=== PATIENT | female | born 1950 | race Caucasian/White ===

== ENCOUNTER 2020-01-17 13:35 | Inpatient (IN) | payer OTHER ==
[2020-01-17] MEDS ORDERED: SODIUM CHLORIDE 0.9% 500 ML INFUS.BAG IV ONE (14:16)
[2020-01-17] MEDS ORDERED: ONDANSETRON 4 MG/2 ML VIAL IVPUSH ONE (14:17)
[2020-01-17] MEDS ORDERED: GLUCAGON 1 MG KIT IVPUSH ONE (14:34)
[2020-01-17 14:57] LABS: BASO % 0.9 % (0-2.0); EOS % 0.8 % (0-4.5); HEMATOCRIT 31.8 % (32.4-45.2); HEMOGLOBIN 10.7 GM/dL (10.7-15.3); LYMPH % 23.1 % (8-40); MCH 30.1 pg (25.7-33.7); MCHC 33.6 g/dl (32.0-36.0); MEAN CELL VOLUME 89.6 fl (80-96); MEAN PLT VOLUME 7.6 fl (7.5-11.1); MONO % 10.9 % (3.8-10.2); NEUT % 64.3 % (42.8-82.8); PLATELET COUNT 188 K/MM3 (134-434); RBC 3.55 M/mm3 (3.60-5.2); WHITE BLOOD COUNT 4.2 K/mm3 (4.0-10.0)
[2020-01-17 15:05] LABS: INR 1.81 (0.83-1.09); PROTHROMBIN TIME (PATIENT) 21.5 SEC (9.7-13.0)
[2020-01-17 15:17] LABS: CHLORIDE 103 mmol/L (98-107); POTASSIUM 4.2 mmol/L (3.5-5.1); SODIUM 138 mmol/L (136-145)
[2020-01-17 15:19] LABS: CALCIUM 9.2 mg/dL (8.5-10.1); GLUCOSE,RANDOM 101 mg/dL (74-106); LIPASE 202 U/L (73-393)
[2020-01-17 15:20] LABS: ALBUMIN 3.4 g/dl (3.4-5.0); ANION GAP 6 MMOL/L (8-16); BLOOD UREA NITROGEN 21.7 mg/dL (7-18); CO2 29 mmol/L (21-32)
[2020-01-17 15:22] LABS: CREATININE 1.2 mg/dL (0.55-1.3); SGOT/AST 32 U/L (15-37); SGPT/ALT 17 U/L (13-61)
[2020-01-17 15:24] LABS: BILIRUBIN,TOTAL 0.8 mg/dL (0.2-1); TOT PROT 7.1 g/dl (6.4-8.2)
[2020-01-17 15:25] LABS: ALK PHOS 115 U/L (45-117); ANISOCYTOSIS 1+; MACROCYTOSIS 0; PLATELET ESTIMATE NORMAL
[2020-01-17 18:00] LABS: PH,URINE 6.5 (5.0-8.0); URINE APPEARANCE CLEAR; URINE BILIRUBIN NEGATIVE (NEGATIVE); URINE COLOR YELLOW; URINE GLUCOSE (UA) NEGATIVE (NEGATIVE); URINE KETONE 1+ (NEGATIVE); URINE LEUK ESTERASE NEGATIVE (NEGATIVE); URINE NITRITE NEGATIVE (NEGATIVE); URINE PROTEIN NEGATIVE (NEGATIVE)
[2020-01-17] MEDS ORDERED: PIPERACILLIN/TAZOB 3.375 GM 3.375 GM in DEXTROSE 5%-WATER - 50 ML IVPB ONE (18:17)
[2020-01-17] MEDS ORDERED: PIPERACILLIN/TAZOB 3.375 GM 3.375 GM/50 ML BAG IVPB ONE (18:33)
[2020-01-17] MEDS ORDERED: DEXTROSE 5%-0.45% SALINE 1,000 ML IV SCH (19:30)
[2020-01-17] MEDS ORDERED: CEFTRIAXONE 1,000 MG in DEXTROSE 5%-WATER - 50 ML IVPB SCH (20:00)
[2020-01-17] MEDS ORDERED: ACETAMINOPHEN 1000 MG/100 ML VIAL (NON FORMULARY) IVPB PRN (20:04)
[2020-01-17] MEDS ORDERED: CEFTRIAXONE 2 GM/100 ML BAG IVPB ONE (20:15)
[2020-01-17] MEDS: CEFTRIAXONE 2 GM in DEXTROSE 5%-WATER 100 ML IVPB SCH (20:26)
[2020-01-17] MEDS: DEXTROSE 5%-0.45% SALINE 1,000 ML IV SCH ×2 (20:26→23:10)
[2020-01-18 08:52] LABS: BASO % 0.8 % (0-2.0); EOS % 0.9 % (0-4.5); HEMATOCRIT 28.7 % (32.4-45.2); HEMOGLOBIN 9.7 GM/dL (10.7-15.3); LYMPH % 17.9 % (8-40); MCH 30.3 pg (25.7-33.7); MCHC 33.8 g/dl (32.0-36.0); MEAN CELL VOLUME 89.6 fl (80-96); MEAN PLT VOLUME 7.5 fl (7.5-11.1); MONO % 11.7 % (3.8-10.2); NEUT % 68.7 % (42.8-82.8); PLATELET COUNT 126 K/MM3 (134-434); RDW 16.1 % (11.6-15.6); RETICULOCYTES 1.85 % (0.5-1.5); WHITE BLOOD COUNT 4.1 K/mm3 (4.0-10.0)
[2020-01-18 09:38] LABS: ALBUMIN 2.9 g/dl (3.4-5.0); CALCIUM 8.6 mg/dL (8.5-10.1); CREATININE 1.1 mg/dL (0.55-1.3); MAGNESIUM 2.2 mg/dL (1.8-2.4); PHOSPHOROUS 4.4 mg/dL (2.5-4.9); POTASSIUM 4.7 mmol/L (3.5-5.1); TOT PROT 6.3 g/dl (6.4-8.2)
[2020-01-18] MEDS ORDERED: DEXTROSE 5%-WATER 100 ML IVPB ONE (10:21)
[2020-01-18] MEDS: CEFTRIAXONE 2 GM in DEXTROSE 5%-WATER 100 ML IVPB SCH (10:59)
[2020-01-18] MEDS ORDERED: MIDAZOLAM HCL 2 MG/2 ML SINGLE DOSE VIAL ONE (16:25)
[2020-01-18] MEDS ORDERED: ONDANSETRON 4 MG/2 ML VIAL IVPUSH PRN ×2 (17:09→17:31)
[2020-01-18] MEDS ORDERED: ACETAMINOPHEN 1000 MG/100 ML VIAL (NON FORMULARY) IVPB PRN (17:31)
[2020-01-18] MEDS: DEXTROSE 5%-0.45% SALINE 1,000 ML IV SCH (18:00)
[2020-01-18] MEDS: PROPOFOL 1,000,000 MCG/100 ML VIAL IVPB SCH (18:00)
[2020-01-18] MEDS ORDERED: SODIUM CHLORIDE 500 ML IV STA (19:37)
[2020-01-18] MEDS: MUPIROCIN 2% TOPICAL OINTMENT FOR DECOLONIZATION NS SCH (21:44)
[2020-01-18] MEDS: CHLORHEXIDINE GLUCONATE 4% CLEANSER FOR DECOLONIZATION TP SCH (21:44)
[2020-01-19] MEDS: PROPOFOL 1,000,000 MCG/100 ML VIAL IVPB SCH ×3 (01:47→18:00)
[2020-01-19] MEDS: DEXTROSE 5%-0.45% SALINE 1,000 ML IV SCH (05:29)
[2020-01-19 07:05] LABS: BASO % 0.6 % (0-2.0); EOS % 1.1 % (0-4.5); HEMATOCRIT 25.2 % (32.4-45.2); HEMOGLOBIN 8.4 GM/dL (10.7-15.3); MCH 29.9 pg (25.7-33.7); MCHC 33.3 g/dl (32.0-36.0); MEAN CELL VOLUME 89.8 fl (80-96); MEAN PLT VOLUME 7.9 fl (7.5-11.1); MONO % 12.1 % (3.8-10.2); NEUT % 64.2 % (42.8-82.8); PLATELET COUNT 108 K/MM3 (134-434); RDW 16.4 % (11.6-15.6); RETICULOCYTES 1.56 % (0.5-1.5); WHITE BLOOD COUNT 3.6 K/mm3 (4.0-10.0)
[2020-01-19 07:37] LABS: POTASSIUM 3.6 mmol/L (3.5-5.1)
[2020-01-19 07:48] LABS: CALCIUM 8.1 mg/dL (8.5-10.1)
[2020-01-19 07:49] LABS: ALBUMIN 2.4 g/dl (3.4-5.0)
[2020-01-19 07:51] LABS: BILIRUBIN,TOTAL 0.5 mg/dL (0.2-1); TOT PROT 5.5 g/dl (6.4-8.2)
[2020-01-19 07:52] LABS: CREATININE 0.9 mg/dL (0.55-1.3)
[2020-01-19] MEDS ORDERED: DEXTROSE 5%-WATER 100 ML IVPB ONE (09:14)
[2020-01-19] MEDS: MUPIROCIN 2% TOPICAL OINTMENT FOR DECOLONIZATION NS SCH ×2 (09:19→21:53)
[2020-01-19] MEDS: CEFTRIAXONE 2 GM in DEXTROSE 5%-WATER 100 ML IVPB SCH (09:19)
[2020-01-19] MEDS ORDERED: ENOXAPARIN NA (PORCINE) 40 MG/0.4 ML DISP.SYRIN SQ SCH (10:30)
[2020-01-19] MEDS ORDERED: DEXTROSE 5%-LACTATED RINGERS 1,000 ML IV SCH (10:45)
[2020-01-19] MEDS: CHLORHEXIDINE GLUCONATE 4% CLEANSER FOR DECOLONIZATION TP SCH (21:53)
[2020-01-20 06:38] LABS: HEMATOCRIT 30.2 % (32.4-45.2); HEMOGLOBIN 9.9 GM/dL (10.7-15.3); MCH 29.4 pg (25.7-33.7); MCHC 32.9 g/dl (32.0-36.0); MEAN CELL VOLUME 89.6 fl (80-96); MEAN PLT VOLUME 7.9 fl (7.5-11.1); PLATELET COUNT 143 K/MM3 (134-434); RBC 3.37 M/mm3 (3.60-5.2); RDW 16.3 % (11.6-15.6); WHITE BLOOD COUNT 4.2 K/mm3 (4.0-10.0)
[2020-01-20 07:05] LABS: POTASSIUM 3.9 mmol/L (3.5-5.1)
[2020-01-20 07:11] LABS: CALCIUM 8.7 mg/dL (8.5-10.1)
[2020-01-20 07:12] LABS: ALBUMIN 2.6 g/dl (3.4-5.0); BLOOD UREA NITROGEN 7.5 mg/dL (7-18); MAGNESIUM 2.1 mg/dL (1.8-2.4)
[2020-01-20 07:15] LABS: CREATININE 0.9 mg/dL (0.55-1.3); PHOSPHOROUS 3.5 mg/dL (2.5-4.9)
[2020-01-20 07:16] LABS: BILIRUBIN,TOTAL 0.6 mg/dL (0.2-1); TOT PROT 6.1 g/dl (6.4-8.2)
[2020-01-20] MEDS ORDERED: DEXTROSE 5%-WATER 100 ML IVPB ONE (08:32)
[2020-01-20] MEDS: CEFTRIAXONE 2 GM in DEXTROSE 5%-WATER 100 ML IVPB SCH (09:35)
[2020-01-20] MEDS: MUPIROCIN 2% TOPICAL OINTMENT FOR DECOLONIZATION NS SCH (09:35)
[2020-01-20 18:07] LABS: HEP B CORE AB, TOT Negative (Negative)
[2020-01-20] MEDS ORDERED: MUPIROCIN 2% TOPICAL OINTMENT FOR DECOLONIZATION NS SCH (22:00)
[2020-01-21 08:29] LABS: BASO % 0.8 % (0-2.0); EOS % 1.6 % (0-4.5); HEMATOCRIT 27.9 % (32.4-45.2); HEMOGLOBIN 9.3 GM/dL (10.7-15.3); LYMPH % 24.6 % (8-40); MCH 29.8 pg (25.7-33.7); MCHC 33.2 g/dl (32.0-36.0); MEAN CELL VOLUME 89.6 fl (80-96); MEAN PLT VOLUME 7.9 fl (7.5-11.1); MONO % 14.3 % (3.8-10.2); NEUT % 58.7 % (42.8-82.8); PLATELET COUNT 137 K/MM3 (134-434); RBC 3.12 M/mm3 (3.60-5.2); RDW 16.3 % (11.6-15.6); WHITE BLOOD COUNT 3.4 K/mm3 (4.0-10.0)
[2020-01-21 08:37] LABS: POTASSIUM 3.9 mmol/L (3.5-5.1)
[2020-01-21 08:38] LABS: BLOOD UREA NITROGEN 8.2 mg/dL (7-18); CALCIUM 8.6 mg/dL (8.5-10.1)
[2020-01-21 08:42] LABS: CREATININE 0.8 mg/dL (0.55-1.3); PHOSPHOROUS 3.8 mg/dL (2.5-4.9)
[2020-01-21] MEDS ORDERED: DEXTROSE 5%-WATER 100 ML IVPB ONE (09:54)
[2020-01-21] MEDS ORDERED: PT OWN MED DRAWER 7, Y5N ONE (09:54)
[2020-01-21] MEDS: ENOXAPARIN NA (PORCINE) 40 MG/0.4 ML DISP.SYRIN SQ SCH (09:58)
[2020-01-21] MEDS: CEFTRIAXONE 2 GM in DEXTROSE 5%-WATER 100 ML IVPB SCH (09:58)
[2020-01-21 11:23] LABS: PLATELET ESTIMATE SLT DECREASE
[2020-01-21 15:02] VITALS: BMI 30.7
[2020-01-22 08:33] LABS: BASO % 0.7 % (0-2.0); EOS % 1.5 % (0-4.5); HEMATOCRIT 26.2 % (32.4-45.2); HEMOGLOBIN 8.6 GM/dL (10.7-15.3); MCH 29.2 pg (25.7-33.7); MCHC 32.8 g/dl (32.0-36.0); MEAN CELL VOLUME 89.1 fl (80-96); MEAN PLT VOLUME 7.5 fl (7.5-11.1); MONO % 15.1 % (3.8-10.2); NEUT % 56.7 % (42.8-82.8); PLATELET COUNT 149 K/MM3 (134-434); RBC 2.94 M/mm3 (3.60-5.2); RDW 16.3 % (11.6-15.6); WHITE BLOOD COUNT 3.5 K/mm3 (4.0-10.0)
[2020-01-22 09:08] LABS: POTASSIUM 4.2 mmol/L (3.5-5.1)
[2020-01-22 09:16] LABS: BLOOD UREA NITROGEN 11.2 mg/dL (7-18); CALCIUM 8.9 mg/dL (8.5-10.1)
[2020-01-22 09:19] LABS: CREATININE 0.8 mg/dL (0.55-1.3)
[2020-01-22] MEDS ORDERED: DEXTROSE 5%-WATER 100 ML IVPB ONE (09:19)
[2020-01-22] MEDS: ENOXAPARIN NA (PORCINE) 40 MG/0.4 ML DISP.SYRIN SQ SCH (09:32)
[2020-01-22] MEDS: CEFTRIAXONE 2 GM in DEXTROSE 5%-WATER 100 ML IVPB SCH (09:32)
[2020-01-22 10:32] LABS: ANISOCYTOSIS 1+; MACROCYTOSIS 0; PLATELET ESTIMATE DECREASED
[2020-01-22] MEDS ORDERED: ACETAMINOPHEN 650 MG/20.3 ML ORAL SOLUTION (CUPS) PO PRN (16:50)
[2020-01-23 07:54] LABS: BASO % 0.8 % (0-2.0); EOS % 1.7 % (0-4.5); HEMATOCRIT 30.7 % (32.4-45.2); LYMPH % 27.4 % (8-40); MCH 29.1 pg (25.7-33.7); MCHC 32.5 g/dl (32.0-36.0); MEAN CELL VOLUME 89.5 fl (80-96); MEAN PLT VOLUME 7.1 fl (7.5-11.1); NEUT % 59.1 % (42.8-82.8); PLATELET COUNT 194 K/MM3 (134-434); RBC 3.44 M/mm3 (3.60-5.2); RDW 16.1 % (11.6-15.6); WHITE BLOOD COUNT 4.6 K/mm3 (4.0-10.0)
[2020-01-23 08:18] LABS: CALCIUM 8.7 mg/dL (8.5-10.1)
[2020-01-23 08:19] LABS: BLOOD UREA NITROGEN 9.8 mg/dL (7-18)
[2020-01-23 08:22] LABS: CREATININE 0.9 mg/dL (0.55-1.3)
[2020-01-23 09:28] LABS: ANISOCYTOSIS 1+; MACROCYTOSIS 0; PLATELET ESTIMATE NORMAL
[2020-01-23] MEDS ORDERED: DEXTROSE 5%-WATER 100 ML IVPB ONE (12:05)
[2020-01-23] MEDS: ENOXAPARIN NA (PORCINE) 40 MG/0.4 ML DISP.SYRIN SQ SCH (12:10)
[2020-01-23] MEDS: CEFTRIAXONE 2 GM in DEXTROSE 5%-WATER 100 ML IVPB SCH (12:11)
[2020-01-23 14:46] VITALS: BP 131/76; PULSE 77; TEMP 98.8
== END 2020-01-23 17:53 | disposition home or self-care (01) | DRG 393 ==
LOC: JER 13:35 → SUPCPDRO 13:35 → JERBED 16:59 → J5S 23:00 → JICU 01-18 17:50 → J6S 01-20 17:39
PROVIDERS: ADMIT Internal Medicine; ATTEND Student in an Organized Health Care Education/Training Program
PROC: 5A1945Z Respiratory Ventilation, 24-96 Consecutive Hours (ICD-10-PCS; 2020-01-18)
PROC: 0DJ08ZZ Inspection of Upper Intestinal Tract, Via Natural or Artificial Opening Endoscopic (ICD-10-PCS; 2020-01-18)
PROC: 0CHY8BZ Insertion of Airway into Mouth and Throat, Via Natural or Artificial Opening Endoscopic (ICD-10-PCS; principal; 2020-01-18 15:20)
DX: T18.128A Food in esophagus causing other injury, initial encounter (principal); J69.0 Pneumonitis due to inhalation of food and vomit; K81.0 Acute cholecystitis; J98.11 Atelectasis; I10 Essential (primary) hypertension; E78.5 Hyperlipidemia, unspecified; R13.10 Dysphagia, unspecified; K76.89 Other specified diseases of liver; I48.91 Unspecified atrial fibrillation; K76.0 Fatty (change of) liver, not elsewhere classified; K22.2 Esophageal obstruction; D69.6 Thrombocytopenia, unspecified; D72.819 Decreased white blood cell count, unspecified; D64.9 Anemia, unspecified; N63.20 Unspecified lump in the left breast, unspecified quadrant; X58.XXXA Exposure to other specified factors, initial encounter; Y93.9 Activity, unspecified; Y92.89 Other specified places as the place of occurrence of the external cause; Y99.9 Unspecified external cause status
CPT/HCPCS: 31500; 36415; 71045-TC-FY; 71046-TC-FY; 71250-TC; 72130-TC; 72133-TC; 74176-TC; 74220-TC-FY; 74240-TC-FY; 76705-TC; 80048; 80053; 81003; 82105; 82378; 82607; 82728; 82746; 82747; 82784; 83010; 83516; 83540; 83550; 83615; 83690; 83735; 84100; 84155; 84165; 84436; 84443; 84484; 85014; 85025; 85027; 85045; 85610; 85730; 86038; 86140; 86300; 86301; 86334; 86704; 86706; 86707; 86708; 86709; 86803; 87040; 87340; 93005; 93010; 94002; 94760; 99285-25; C9803; J0131; Q9967; U0003

== ENCOUNTER 2020-01-29 06:04 | Emergency (ER) | payer OTHER ==
[2020-01-29 06:20] VITALS: BMI 30.7
[2020-01-29 07:05] LABS: BASO % 1.3 % (0-2.0); EOS % 1.2 % (0-4.5); HEMATOCRIT 30.1 % (32.4-45.2); HEMOGLOBIN 9.9 GM/dL (10.7-15.3); LYMPH % 22.1 % (8-40); MCH 29.3 pg (25.7-33.7); MCHC 32.8 g/dl (32.0-36.0); MEAN CELL VOLUME 89.2 fl (80-96); MEAN PLT VOLUME 7.2 fl (7.5-11.1); MONO % 10.7 % (3.8-10.2); NEUT % 64.7 % (42.8-82.8); PLATELET COUNT 230 K/MM3 (134-434); RBC 3.37 M/mm3 (3.60-5.2); RDW 17.2 % (11.6-15.6); WHITE BLOOD COUNT 4.5 K/mm3 (4.0-10.0)
[2020-01-29 07:16] LABS: POTASSIUM 4.3 mmol/L (3.5-5.1)
[2020-01-29 07:18] LABS: CALCIUM 8.6 mg/dL (8.5-10.1)
[2020-01-29 07:19] LABS: ALBUMIN 2.9 g/dl (3.4-5.0); BLOOD UREA NITROGEN 14.9 mg/dL (7-18); INR 1.62 (0.83-1.09); PROTHROMBIN TIME (PATIENT) 19.3 SEC (9.7-13.0)
[2020-01-29 07:21] LABS: ACTIVATED PTT 33.8 SECONDS (25.2-36.5)
[2020-01-29 07:22] LABS: CREATININE 0.9 mg/dL (0.55-1.3)
[2020-01-29 07:23] LABS: BILIRUBIN,TOTAL 0.5 mg/dL (0.2-1); TOT PROT 6.5 g/dl (6.4-8.2)
[2020-01-29 08:33] LABS: ANISOCYTOSIS 1+; MACROCYTOSIS 0; PLATELET ESTIMATE NORMAL
[2020-01-29 09:35] LABS: EPI CELLS 13 /uL (0-25.1); HYALINE CASTS 2 /uL (0-3.1); PH,URINE 5.5 (5.0-8.0); URINE APPEARANCE CLEAR; URINE BACTERIA 8 /uL (0-1359); URINE BILIRUBIN NEGATIVE (NEGATIVE); URINE COLOR YELLOW; URINE GLUCOSE (UA) NEGATIVE (NEGATIVE); URINE KETONE NEGATIVE (NEGATIVE); URINE LEUK ESTERASE NEGATIVE (NEGATIVE); URINE NITRITE NEGATIVE (NEGATIVE); URINE PROTEIN NEGATIVE (NEGATIVE); URINE RBC 32 /uL (0-23.9); URINE UROBILINOGEN 0.2 mg/dL (0.2-1.0); URINE WBC 3 /uL (0-25.8)
[2020-01-29 12:02] VITALS: BP 130/86; PULSE 67; TEMP 98.1
== END 2020-01-29 12:00 | disposition home or self-care (01) ==
LOC: JER 06:04
DX: R31.9 Hematuria, unspecified (principal); D25.9 Leiomyoma of uterus, unspecified
CPT/HCPCS: 36415; 76856-TC; 80053; 81003; 85025; 85610; 85730; 87086; 99284-25

== ENCOUNTER 2020-03-04 09:59 | Day surgery (SDC) | payer OTHER ==
[2020-02-28 16:39] VITALS: BMI 28.7
[2020-03-04] MEDS ORDERED: LIDOCAINE HCL/PF 2% SDV 5ML VIAL ONE (10:08)
[2020-03-04] MEDS ORDERED: PROPOFOL 20 ML ONE ×2 (10:09)
[2020-03-04 11:17] VITALS: TEMP 98.2
[2020-03-04 12:06] VITALS: BP 112/62; PULSE 74
== END 2020-03-04 12:30 | disposition home or self-care (01) ==
LOC: FASU-ENDO 09:59
PROVIDERS: ATTEND Internal Medicine Gastroenterology
PROC: 0DB68ZX Excision of Stomach, Via Natural or Artificial Opening Endoscopic, Diagnostic (ICD-10-PCS; 2020-03-04)
PROC: 0DB28ZX Excision of Middle Esophagus, Via Natural or Artificial Opening Endoscopic, Diagnostic (ICD-10-PCS; 2020-03-04)
PROC: 0DB48ZX Excision of Esophagogastric Junction, Via Natural or Artificial Opening Endoscopic, Diagnostic (ICD-10-PCS; 2020-03-04)
PROC: 0DB98ZX Excision of Duodenum, Via Natural or Artificial Opening Endoscopic, Diagnostic (ICD-10-PCS; principal; 2020-03-04 10:52)
DX: C16.2 Malignant neoplasm of body of stomach (principal); K29.50 Unspecified chronic gastritis without bleeding; K21.00 Gastro-esophageal reflux disease with esophagitis, without bleeding; R13.10 Dysphagia, unspecified

== ENCOUNTER 2020-03-10 07:33 | Day surgery (SDC) | payer OTHER ==
[2020-03-10] MEDS ORDERED: FULVESTRANT 250 MG/5 ML SYRINGE IM ONE (10:00)
[2020-03-10 12:09] LABS: BASO % 0.4 % (0-2.0); EOS % 0.5 % (0-4.5); HEMATOCRIT 30.7 % (32.4-45.2); HEMOGLOBIN 10.1 GM/dL (10.7-15.3); LYMPH % 14.6 % (8-40); MCH 29.8 pg (25.7-33.7); MCHC 32.9 g/dl (32.0-36.0); MEAN CELL VOLUME 90.7 fl (80-96); MEAN PLT VOLUME 7.2 fl (7.5-11.1); MONO % 9.1 % (3.8-10.2); NEUT % 75.4 % (42.8-82.8); PLATELET COUNT 222 K/MM3 (134-434); RBC 3.38 M/mm3 (3.60-5.2); WHITE BLOOD COUNT 5.6 K/mm3 (4.0-10.0)
[2020-03-10 12:34] LABS: CALCIUM 8.9 mg/dL (8.5-10.1)
[2020-03-10 12:35] LABS: ALBUMIN 2.9 g/dl (3.4-5.0); BLOOD UREA NITROGEN 15.7 mg/dL (7-18)
[2020-03-10 12:38] LABS: BILIRUBIN,DIRECT 0.4 mg/dL (0.0-0.2); CREATININE 1.1 mg/dL (0.55-1.3)
[2020-03-10 12:39] LABS: BILIRUBIN,TOTAL 1.5 mg/dL (0.2-1)
[2020-03-10 12:41] LABS: TOT PROT 7.4 g/dl (6.4-8.2)
[2020-03-10 16:10] VITALS: BP 138/77; PULSE 82; TEMP 98.1
== END 2020-03-10 12:55 | disposition home or self-care (01) ==
LOC: JONCCHEMO 07:33
PROVIDERS: ATTEND Internal Medicine
DX: Z51.11 Encounter for antineoplastic chemotherapy (principal); C50.919 Malignant neoplasm of unspecified site of unspecified female breast
CPT/HCPCS: 36415; 80048; 80053; 80076; 85025; 96402; J9395

== ENCOUNTER 2020-04-07 07:40 | Day surgery (SDC) | payer OTHER ==
[2020-04-07] MEDS ORDERED: FULVESTRANT 250 MG/5 ML SYRINGE IM ONE (10:00)
[2020-04-07 10:30] LABS: BASO % 1.4 % (0-2.0); EOS % 1.4 % (0-4.5); HEMATOCRIT 27.2 % (32.4-45.2); HEMOGLOBIN 8.7 GM/dL (10.7-15.3); LYMPH % 27.2 % (8-40); MCH 29.2 pg (25.7-33.7); MEAN CELL VOLUME 91.2 fl (80-96); MEAN PLT VOLUME 7.7 fl (7.5-11.1); MONO % 10.7 % (3.8-10.2); NEUT % 59.3 % (42.8-82.8); PLATELET COUNT 214 K/MM3 (134-434); RBC 2.98 M/mm3 (3.60-5.2); RDW 20.9 % (11.6-15.6); WHITE BLOOD COUNT 4.1 K/mm3 (4.0-10.0)
[2020-04-07 10:48] LABS: POTASSIUM 4.9 mmol/L (3.5-5.1)
[2020-04-07 10:50] LABS: ALBUMIN 3.3 g/dl (3.4-5.0); CALCIUM 8.3 mg/dL (8.5-10.1)
[2020-04-07 10:51] LABS: BLOOD UREA NITROGEN 13.1 mg/dL (7-18); MAGNESIUM 2.6 mg/dL (1.8-2.4)
[2020-04-07 10:53] LABS: CREATININE 0.7 mg/dL (0.55-1.3)
[2020-04-07 10:54] LABS: BILIRUBIN,DIRECT 0.2 mg/dL (0.0-0.2)
[2020-04-07 10:55] LABS: BILIRUBIN,TOTAL 0.8 mg/dL (0.2-1)
[2020-04-07 12:20] LABS: ANISOCYTOSIS 1+; MACROCYTOSIS 1+; OVALOCYTE 1+; PLATELET ESTIMATE NORMAL
[2020-04-07 12:39] VITALS: BP 126/69; PULSE 50; TEMP 97.7
== END 2020-04-07 10:30 | disposition home or self-care (01) ==
LOC: JONCCHEMO 07:40
PROVIDERS: ATTEND Internal Medicine Hematology & Oncology
DX: Z51.11 Encounter for antineoplastic chemotherapy (principal); C50.919 Malignant neoplasm of unspecified site of unspecified female breast
CPT/HCPCS: 36415; 80048; 80076; 82728; 83540; 83550; 83735; 85025; 96402; J9395

== ENCOUNTER 2020-05-05 07:41 | Day surgery (SDC) | payer OTHER ==
[2020-05-05] MEDS ORDERED: FULVESTRANT 250 MG/5 ML SYRINGE IM ONE (10:00)
[2020-05-05] MEDS ORDERED: ZOLEDRONIC ACID 3 MG in SODIUM CHLORIDE 100 ML IVPB ONE (10:00)
[2020-05-05 11:45] LABS: BASO % 0.8 % (0-2.0); EOS % 0.5 % (0-4.5); HEMATOCRIT 28.2 % (32.4-45.2); HEMOGLOBIN 9.2 GM/dL (10.7-15.3); LYMPH % 35.8 % (8-40); MCH 29.7 pg (25.7-33.7); MCHC 32.7 g/dl (32.0-36.0); MEAN CELL VOLUME 90.9 fl (80-96); MEAN PLT VOLUME 7.1 fl (7.5-11.1); MONO % 5.1 % (3.8-10.2); NEUT % 57.8 % (42.8-82.8); PLATELET COUNT 223 K/MM3 (134-434); RDW 20.2 % (11.6-15.6); WHITE BLOOD COUNT 2.1 K/mm3 (4.0-10.0)
[2020-05-05 11:52] LABS: POTASSIUM 4.6 mmol/L (3.5-5.1)
[2020-05-05 11:54] LABS: CALCIUM 8.6 mg/dL (8.5-10.1)
[2020-05-05 11:55] LABS: ALBUMIN 3.3 g/dl (3.4-5.0); BLOOD UREA NITROGEN 22.8 mg/dL (7-18); MAGNESIUM 2.3 mg/dL (1.8-2.4)
[2020-05-05 11:57] LABS: BILIRUBIN,DIRECT 0.2 mg/dL (0.0-0.2); URIC ACID 3.3 mg/dL (2.6-7.2)
[2020-05-05 11:58] LABS: CREATININE 1.1 mg/dL (0.55-1.3)
[2020-05-05 11:59] LABS: BILIRUBIN,TOTAL 0.5 mg/dL (0.2-1); TOT PROT 6.9 g/dl (6.4-8.2)
[2020-05-05] MEDS ORDERED: ZOLEDRONIC ACID 3.5 MG in SODIUM CHLORIDE 100 ML IVPB ONE (12:25)
[2020-05-05 16:15] VITALS: BP 114/56; PULSE 57; TEMP 98
[2020-05-06 08:06] LABS: IGA IMMUNOGLOBULIN 332 mg/dL (87-352); IGG QN IMMUNOGLOBULIN 1055 mg/dL (586-1602); IGM QN SERUM 60 mg/dL (26-217)
[2020-05-07 15:07] LABS: HGB SOLUBILITY Negative (Negative); Hgb C 0 % (0.0); Hgb F 0 % (0.0-2.0); Hgb S 0 % (0.0)
== END 2020-05-05 13:50 | disposition home or self-care (01) ==
LOC: JONCCHEMO 07:41
PROVIDERS: ATTEND Internal Medicine Hematology & Oncology
PROC: 3E02305 Introduction of Other Antineoplastic into Muscle, Percutaneous Approach (ICD-10-PCS; principal; 2020-05-05)
PROC: 3E033GC Introduction of Other Therapeutic Substance into Peripheral Vein, Percutaneous Approach (ICD-10-PCS; 2020-05-05)
DX: Z51.11 Encounter for antineoplastic chemotherapy (principal); C50.919 Malignant neoplasm of unspecified site of unspecified female breast
CPT/HCPCS: 36415; 80048; 80076; 82607; 82784; 83021; 83615; 83735; 83883; 84155; 84165; 84439; 84443; 84550; 85025; 85045; 85660; 96365; 96402; J3489; J9395

== ENCOUNTER 2020-06-02 06:38 | Day surgery (SDC) | payer OTHER ==
[2020-06-02] MEDS ORDERED: ZOLEDRONIC ACID 3.5 MG in SODIUM CHLORIDE 100 ML IVPB ONE (10:00)
[2020-06-02] MEDS ORDERED: FULVESTRANT 250 MG/5 ML SYRINGE IM ONE (10:00)
[2020-06-02 11:00] LABS: BASO % 0.8 % (0-2.0); EOS % 1.3 % (0-4.5); HEMATOCRIT 31.6 % (32.4-45.2); HEMOGLOBIN 10.3 GM/dL (10.7-15.3); LYMPH % 21.3 % (8-40); MCH 30.2 pg (25.7-33.7); MCHC 32.7 g/dl (32.0-36.0); MEAN CELL VOLUME 92.4 fl (80-96); MEAN PLT VOLUME 6.8 fl (7.5-11.1); MONO % 4.6 % (3.8-10.2); PLATELET COUNT 359 K/MM3 (134-434); RBC 3.42 M/mm3 (3.60-5.2); RDW 20.6 % (11.6-15.6)
[2020-06-02 12:12] LABS: POTASSIUM 4.5 mmol/L (3.5-5.1)
[2020-06-02 12:14] LABS: ALBUMIN 3.7 g/dl (3.4-5.0); CALCIUM 8.1 mg/dL (8.5-10.1)
[2020-06-02 12:15] LABS: BLOOD UREA NITROGEN 15.4 mg/dL (7-18); MAGNESIUM 2.5 mg/dL (1.8-2.4)
[2020-06-02 12:17] LABS: BILIRUBIN,DIRECT 0.1 mg/dL (0.0-0.2)
[2020-06-02 12:18] LABS: CREATININE 0.8 mg/dL (0.55-1.3)
[2020-06-02 12:19] LABS: BILIRUBIN,TOTAL 0.5 mg/dL (0.2-1); TOT PROT 7.4 g/dl (6.4-8.2)
[2020-06-02 14:43] VITALS: BP 108/48; PULSE 58; TEMP 98.4
[2020-06-02 15:16] LABS: ANISOCYTOSIS 1+; MACROCYTOSIS 1+; OVALOCYTE 1+; PLATELET ESTIMATE NORMAL
== END 2020-06-02 13:30 | disposition home or self-care (01) ==
LOC: JONCCHEMO 06:38
PROVIDERS: ATTEND Internal Medicine Hematology & Oncology
PROC: 3E02305 Introduction of Other Antineoplastic into Muscle, Percutaneous Approach (ICD-10-PCS; principal; 2020-06-02)
PROC: 3E033GC Introduction of Other Therapeutic Substance into Peripheral Vein, Percutaneous Approach (ICD-10-PCS; 2020-06-02)
DX: Z51.11 Encounter for antineoplastic chemotherapy (principal); C50.912 Malignant neoplasm of unspecified site of left female breast; C79.51 Secondary malignant neoplasm of bone
CPT/HCPCS: 36415; 80048; 80076; 83735; 85025; 96365; 96402; J3489; J9395

== ENCOUNTER 2020-06-08 09:38 | Emergency (ER) | payer OTHER ==
[2020-06-08 10:50] VITALS: BP 124/65; PULSE 63; TEMP 98.1; BMI 27.8
== END 2020-06-08 12:40 | disposition home or self-care (01) ==
LOC: JER 09:38
DX: S09.90XA Unspecified injury of head, initial encounter (principal)
CPT/HCPCS: 70450-TC; 99284-25

== ENCOUNTER 2020-06-30 07:24 | Day surgery (SDC) | payer OTHER ==
[2020-06-30] MEDS ORDERED: ZOLEDRONIC ACID 4 MG in SODIUM CHLORIDE 100 ML IVPB ONE (10:00)
[2020-06-30] MEDS ORDERED: FULVESTRANT 250 MG/5 ML SYRINGE IM ONE (10:00)
[2020-06-30 10:21] LABS: BASO % 1.4 % (0-2.0); EOS % 0.8 % (0-4.5); HEMATOCRIT 29.5 % (32.4-45.2); HEMOGLOBIN 9.8 GM/dL (10.7-15.3); LYMPH % 40.9 % (8-40); MCH 30.7 pg (25.7-33.7); MCHC 33.2 g/dl (32.0-36.0); MEAN CELL VOLUME 92.4 fl (80-96); MONO % 8.8 % (3.8-10.2); NEUT % 48.1 % (42.8-82.8); PLATELET COUNT 237 K/MM3 (134-434); RBC 3.19 M/mm3 (3.60-5.2); RDW 20.7 % (11.6-15.6); WHITE BLOOD COUNT 2.2 K/mm3 (4.0-10.0)
[2020-06-30 10:50] LABS: ALBUMIN 3.4 g/dl (3.4-5.0); CALCIUM 9.3 mg/dL (8.5-10.1)
[2020-06-30 10:51] LABS: BLOOD UREA NITROGEN 19.2 mg/dL (7-18); MAGNESIUM 2.3 mg/dL (1.8-2.4)
[2020-06-30 10:53] LABS: BILIRUBIN,DIRECT 0.2 mg/dL (0.0-0.2)
[2020-06-30 10:54] LABS: CREATININE 0.9 mg/dL (0.55-1.3)
[2020-06-30 10:55] LABS: BILIRUBIN,TOTAL 0.4 mg/dL (0.2-1); TOT PROT 7.1 g/dl (6.4-8.2)
[2020-06-30 12:24] LABS: ANISOCYTOSIS 1+; MACROCYTOSIS 0; OVALOCYTE 1+; PLATELET ESTIMATE NORMAL
[2020-06-30 15:49] VITALS: PULSE 70; TEMP 98.4
[2020-06-30 15:50] VITALS: BP 104/61
== END 2020-06-30 14:15 | disposition home or self-care (01) ==
LOC: JONCCHEMO 07:24
PROVIDERS: ATTEND Internal Medicine Hematology & Oncology
PROC: 3E02305 Introduction of Other Antineoplastic into Muscle, Percutaneous Approach (ICD-10-PCS; principal; 2020-06-30)
PROC: 3E033GC Introduction of Other Therapeutic Substance into Peripheral Vein, Percutaneous Approach (ICD-10-PCS; 2020-06-30)
DX: Z51.11 Encounter for antineoplastic chemotherapy (principal); C50.912 Malignant neoplasm of unspecified site of left female breast; C79.51 Secondary malignant neoplasm of bone
CPT/HCPCS: 36415; 80048; 80076; 82378; 82728; 83540; 83550; 83735; 85025; 96365; 96402; J3489; J9395

== ENCOUNTER 2020-07-28 06:46 | Day surgery (SDC) | payer OTHER ==
[2020-07-28] MEDS ORDERED: ZOLEDRONIC ACID 4 MG in SODIUM CHLORIDE 100 ML IVPB ONE (10:00)
[2020-07-28] MEDS ORDERED: FULVESTRANT 250 MG/5 ML SYRINGE IM ONE (10:00)
[2020-07-28 10:17] LABS: EOS % 1.8 % (0-4.5); HEMATOCRIT 33.3 % (32.4-45.2); LYMPH % 20.1 % (8-40); MCH 30.9 pg (25.7-33.7); MCHC 33.1 g/dl (32.0-36.0); MEAN CELL VOLUME 93.4 fl (80-96); MEAN PLT VOLUME 7.2 fl (7.5-11.1); MONO % 5.5 % (3.8-10.2); NEUT % 71.6 % (42.8-82.8); PLATELET COUNT 355 K/MM3 (134-434); RBC 3.56 M/mm3 (3.60-5.2); RDW 19.7 % (11.6-15.6); WHITE BLOOD COUNT 3.8 K/mm3 (4.0-10.0)
[2020-07-28 10:44] LABS: CALCIUM 8.3 mg/dL (8.5-10.1)
[2020-07-28 10:45] LABS: ALBUMIN 3.6 g/dl (3.4-5.0); BLOOD UREA NITROGEN 15.7 mg/dL (7-18); MAGNESIUM 2.8 mg/dL (1.8-2.4)
[2020-07-28 10:47] LABS: BILIRUBIN,DIRECT 0.2 mg/dL (0.0-0.2)
[2020-07-28 10:49] LABS: BILIRUBIN,TOTAL 0.5 mg/dL (0.2-1); TOT PROT 7.5 g/dl (6.4-8.2)
[2020-07-28 10:52] LABS: CREATININE 0.7 mg/dL (0.55-1.3)
[2020-07-28 14:28] VITALS: PULSE 53; TEMP 98.3
[2020-07-28 14:38] VITALS: BP 115/40
== END 2020-07-28 11:05 | disposition home or self-care (01) ==
LOC: JONCCHEMO 06:46
PROVIDERS: ATTEND Internal Medicine Hematology & Oncology
PROC: 3E02305 Introduction of Other Antineoplastic into Muscle, Percutaneous Approach (ICD-10-PCS; principal; 2020-07-28)
PROC: 3E033GC Introduction of Other Therapeutic Substance into Peripheral Vein, Percutaneous Approach (ICD-10-PCS; 2020-07-28)
DX: Z51.11 Encounter for antineoplastic chemotherapy (principal); C50.912 Malignant neoplasm of unspecified site of left female breast; C79.51 Secondary malignant neoplasm of bone
CPT/HCPCS: 36415; 80048; 80076; 82378; 83735; 85025; 96365; 96402; J3489; J9395

== ENCOUNTER 2020-08-25 07:23 | Day surgery (SDC) | payer OTHER ==
[2020-08-25 09:37] LABS: BASO % 2.5 % (0-2.0); EOS % 1.6 % (0-4.5); HEMATOCRIT 32.7 % (32.4-45.2); HEMOGLOBIN 10.8 GM/dL (10.7-15.3); LYMPH % 34.1 % (8-40); MCH 31.1 pg (25.7-33.7); MEAN CELL VOLUME 94.3 fl (80-96); MEAN PLT VOLUME 6.9 fl (7.5-11.1); MONO % 7.7 % (3.8-10.2); NEUT % 54.1 % (42.8-82.8); PLATELET COUNT 264 10^3/uL (134-434); RBC 3.47 M/mm3 (3.60-5.2); RDW 19.3 % (11.6-15.6); WHITE BLOOD COUNT 2.5 K/mm3 (4.0-10.0)
[2020-08-25 09:55] LABS: ALBUMIN 3.6 g/dl (3.4-5.0); BLOOD UREA NITROGEN 17.2 mg/dL (7-18)
[2020-08-25 09:57] LABS: MAGNESIUM 2.2 mg/dL (1.8-2.4)
[2020-08-25 09:58] LABS: BILIRUBIN,DIRECT 0.2 mg/dL (0.0-0.2)
[2020-08-25 09:59] LABS: BILIRUBIN,TOTAL 0.6 mg/dL (0.2-1); CREATININE 1.1 mg/dL (0.55-1.3)
[2020-08-25 10:00] LABS: TOT PROT 7.8 g/dl (6.4-8.2)
[2020-08-25] MEDS ORDERED: ZOLEDRONIC ACID 4 MG in SODIUM CHLORIDE 100 ML IVPB ONE (10:00)
[2020-08-25] MEDS ORDERED: FULVESTRANT 250 MG/5 ML SYRINGE IM ONE (10:00)
[2020-08-25] MEDS ORDERED: ZOLEDRONIC ACID 3.5 MG in SODIUM CHLORIDE 100 ML IVPB ONE (10:30)
[2020-08-25 14:53] VITALS: TEMP 97.9
[2020-08-25 14:55] VITALS: BP 120/76; PULSE 51
== END 2020-08-25 11:55 | disposition home or self-care (01) ==
LOC: JONCCHEMO 07:23
PROVIDERS: ATTEND Internal Medicine Hematology & Oncology
PROC: 3E02305 Introduction of Other Antineoplastic into Muscle, Percutaneous Approach (ICD-10-PCS; principal; 2020-08-25)
PROC: 3E033GC Introduction of Other Therapeutic Substance into Peripheral Vein, Percutaneous Approach (ICD-10-PCS; 2020-08-25)
DX: Z51.11 Encounter for antineoplastic chemotherapy (principal); C50.919 Malignant neoplasm of unspecified site of unspecified female breast
CPT/HCPCS: 36415; 80048; 80076; 82306; 82378; 83735; 85025; 86300; 96365; 96402; J3489; J9395

== ENCOUNTER 2020-09-22 05:43 | Day surgery (SDC) | payer OTHER ==
[2020-09-22] MEDS ORDERED: FULVESTRANT 250 MG/5 ML SYRINGE IM ONE (10:00)
[2020-09-22] MEDS ORDERED: ZOLEDRONIC ACID 3.5 MG in SODIUM CHLORIDE 100 ML IVPB ONE (10:00)
[2020-09-22 11:14] LABS: BASO % 0.9 % (0-2.0); EOS % 2.2 % (0-4.5); HEMATOCRIT 34.2 % (32.4-45.2); HEMOGLOBIN 11.2 GM/dL (10.7-15.3); MCH 31.3 pg (25.7-33.7); MCHC 32.7 g/dl (32.0-36.0); MEAN CELL VOLUME 95.8 fl (80-96); MEAN PLT VOLUME 7.2 fl (7.5-11.1); NEUT % 59.9 % (42.8-82.8); PLATELET COUNT 273 10^3/uL (134-434); RBC 3.57 M/mm3 (3.60-5.2); RDW 18.2 % (11.6-15.6); WHITE BLOOD COUNT 3.9 K/mm3 (4.0-10.0)
[2020-09-22 11:35] LABS: CALCIUM 8.8 mg/dL (8.5-10.1)
[2020-09-22 11:36] LABS: ALBUMIN 3.6 g/dl (3.4-5.0); BLOOD UREA NITROGEN 19.7 mg/dL (7-18); MAGNESIUM 2.2 mg/dL (1.8-2.4)
[2020-09-22 11:38] LABS: BILIRUBIN,DIRECT 0.2 mg/dL (0.0-0.2)
[2020-09-22 11:39] LABS: CREATININE 0.9 mg/dL (0.55-1.3)
[2020-09-22 11:40] LABS: BILIRUBIN,TOTAL 0.6 mg/dL (0.2-1); TOT PROT 7.4 g/dl (6.4-8.2)
[2020-09-22 14:57] VITALS: BP 125/62; TEMP 97.8
[2020-09-22 15:06] VITALS: PULSE 54
== END 2020-09-22 12:40 | disposition home or self-care (01) ==
LOC: JONCCHEMO 05:43
PROVIDERS: ATTEND Internal Medicine Hematology & Oncology
PROC: 3E02305 Introduction of Other Antineoplastic into Muscle, Percutaneous Approach (ICD-10-PCS; principal; 2020-09-22)
PROC: 3E033GC Introduction of Other Therapeutic Substance into Peripheral Vein, Percutaneous Approach (ICD-10-PCS; 2020-09-22)
DX: Z51.11 Encounter for antineoplastic chemotherapy (principal); C50.919 Malignant neoplasm of unspecified site of unspecified female breast
CPT/HCPCS: 36415; 80048; 80076; 82378; 83735; 85025; 86300; 96365; 96402; J3489; J9395

== ENCOUNTER 2020-10-20 06:50 | Day surgery (SDC) | payer OTHER ==
[2020-10-20 09:39] LABS: BASO % 1.4 % (0-2.0); EOS % 0.6 % (0-4.5); HEMATOCRIT 30.8 % (32.4-45.2); HEMOGLOBIN 10.5 GM/dL (10.7-15.3); MCH 33.4 pg (25.7-33.7); MCHC 34.3 g/dl (32.0-36.0); MEAN CELL VOLUME 97.5 fl (80-96); MEAN PLT VOLUME 6.8 fl (7.5-11.1); PLATELET COUNT 242 10^3/uL (134-434); RBC 3.16 M/mm3 (3.60-5.2); RDW 18.5 % (11.6-15.6); WHITE BLOOD COUNT 3.8 K/mm3 (4.0-10.0)
[2020-10-20 09:57] LABS: ALBUMIN 3.6 g/dl (3.4-5.0); BLOOD UREA NITROGEN 16.2 mg/dL (7-18); CALCIUM 8.6 mg/dL (8.5-10.1); MAGNESIUM 2.6 mg/dL (1.8-2.4)
[2020-10-20 10:00] LABS: BILIRUBIN,DIRECT 0.1 mg/dL (0.0-0.2); CREATININE 0.9 mg/dL (0.55-1.3)
[2020-10-20] MEDS ORDERED: FULVESTRANT 250 MG/5 ML SYRINGE IM ONE (10:00)
[2020-10-20] MEDS ORDERED: ZOLEDRONIC ACID 3.5 MG in SODIUM CHLORIDE 100 ML IVPB ONE (10:00)
[2020-10-20 10:02] LABS: BILIRUBIN,TOTAL 0.4 mg/dL (0.2-1); TOT PROT 7.6 g/dl (6.4-8.2)
[2020-10-20] MEDS ORDERED: ZOLEDRONIC ACID 4 MG in SODIUM CHLORIDE 100 ML IVPB ONE (10:30)
[2020-10-20 15:47] VITALS: TEMP 97.9
[2020-10-20 15:48] VITALS: BP 130/43; PULSE 52
== END 2020-10-20 11:30 | disposition home or self-care (01) ==
LOC: JONCCHEMO 06:50
PROVIDERS: ATTEND Nurse Practitioner Family
PROC: 3E01305 Introduction of Other Antineoplastic into Subcutaneous Tissue, Percutaneous Approach (ICD-10-PCS; principal; 2020-10-20)
PROC: 3E033GC Introduction of Other Therapeutic Substance into Peripheral Vein, Percutaneous Approach (ICD-10-PCS; 2020-10-20)
DX: Z51.11 Encounter for antineoplastic chemotherapy (principal); C50.912 Malignant neoplasm of unspecified site of left female breast; C77.3 Secondary and unspecified malignant neoplasm of axilla and upper limb lymph nodes; C79.51 Secondary malignant neoplasm of bone; Z17.0 Estrogen receptor positive status [ER+]
CPT/HCPCS: 36415; 80048; 80076; 82378; 83735; 85025; 96365; 96401; J3489; J9395

== ENCOUNTER 2020-11-17 06:56 | Day surgery (SDC) | payer OTHER ==
[2020-11-17] MEDS ORDERED: ZOLEDRONIC ACID 3.5 MG in SODIUM CHLORIDE 100 ML IVPB ONE (10:00)
[2020-11-17] MEDS ORDERED: FULVESTRANT 250 MG/5 ML SYRINGE IM ONE (10:00)
[2020-11-17 10:01] LABS: BASO % 1.1 % (0-2.0); HEMOGLOBIN 10.7 GM/dL (10.7-15.3); LYMPH % 38.7 % (8-40); MCH 33.9 pg (25.7-33.7); MCHC 34.4 g/dl (32.0-36.0); MEAN CELL VOLUME 98.5 fl (80-96); MONO % 7.1 % (3.8-10.2); NEUT % 52.1 % (42.8-82.8); PLATELET COUNT 210 10^3/uL (134-434); RBC 3.15 M/mm3 (3.60-5.2); RDW 17.5 % (11.6-15.6); WHITE BLOOD COUNT 3.4 K/mm3 (4.0-10.0)
[2020-11-17 10:19] LABS: CALCIUM 8.7 mg/dL (8.5-10.1)
[2020-11-17 10:20] LABS: ALBUMIN 3.4 g/dl (3.4-5.0); BLOOD UREA NITROGEN 15.2 mg/dL (7-18); MAGNESIUM 2.6 mg/dL (1.8-2.4)
[2020-11-17 10:22] LABS: BILIRUBIN,DIRECT 0.2 mg/dL (0.0-0.2)
[2020-11-17 10:23] LABS: CREATININE 0.9 mg/dL (0.55-1.3)
[2020-11-17 10:24] LABS: BILIRUBIN,TOTAL 0.6 mg/dL (0.2-1)
[2020-11-17 10:25] LABS: TOT PROT 7.8 g/dl (6.4-8.2)
[2020-11-17] MEDS: ZOLEDRONIC ACID 4 MG in SODIUM CHLORIDE 100 ML IVPB ONE ×2 (11:19→12:11)
[2020-11-17 17:05] VITALS: BP 129/42; PULSE 56; TEMP 97.7
== END 2020-11-17 13:50 | disposition home or self-care (01) ==
LOC: JONCCHEMO 06:56
PROVIDERS: ATTEND Internal Medicine Hematology & Oncology
PROC: 3E01305 Introduction of Other Antineoplastic into Subcutaneous Tissue, Percutaneous Approach (ICD-10-PCS; principal; 2020-11-17)
PROC: 3E033GC Introduction of Other Therapeutic Substance into Peripheral Vein, Percutaneous Approach (ICD-10-PCS; 2020-11-17)
DX: Z51.11 Encounter for antineoplastic chemotherapy (principal); C50.912 Malignant neoplasm of unspecified site of left female breast; Z17.0 Estrogen receptor positive status [ER+]
CPT/HCPCS: 36415; 80048; 80076; 82378; 83735; 85025; 96367; 96402; J3489; J9395

== ENCOUNTER 2020-12-14 07:39 | Day surgery (SDC) | payer OTHER ==
[2020-12-14] MEDS ORDERED: FULVESTRANT 250 MG/5 ML SYRINGE IM ONE (10:00)
[2020-12-14] MEDS ORDERED: ZOLEDRONIC ACID 4 MG in SODIUM CHLORIDE 100 ML IVPB ONE (10:00)
[2020-12-14 11:06] LABS: BASO % 1.4 % (0-2.0); EOS % 1.7 % (0-4.5); HEMATOCRIT 31.4 % (32.4-45.2); HEMOGLOBIN 10.8 GM/dL (10.7-15.3); LYMPH % 34.5 % (8-40); MCH 34.4 pg (25.7-33.7); MCHC 34.3 g/dl (32.0-36.0); MEAN CELL VOLUME 100.4 fl (80-96); MONO % 7.6 % (3.8-10.2); NEUT % 54.8 % (42.8-82.8); PLATELET COUNT 266 10^3/uL (134-434); RBC 3.12 M/mm3 (3.60-5.2); RDW 17.3 % (11.6-15.6); WHITE BLOOD COUNT 4.1 K/mm3 (4.0-10.0)
[2020-12-14 11:25] LABS: ALBUMIN 3.6 g/dl (3.4-5.0); BLOOD UREA NITROGEN 23.4 mg/dL (7-18); MAGNESIUM 2.3 mg/dL (1.8-2.4)
[2020-12-14 11:27] LABS: BILIRUBIN,DIRECT 0.1 mg/dL (0.0-0.2)
[2020-12-14 11:28] LABS: CREATININE 1.2 mg/dL (0.55-1.3)
[2020-12-14 11:29] LABS: BILIRUBIN,TOTAL 0.4 mg/dL (0.2-1); TOT PROT 7.8 g/dl (6.4-8.2)
[2020-12-14] MEDS ORDERED: SODIUM CHLORIDE IVPB ONE (11:57)
[2020-12-14] MEDS ORDERED: ZOLEDRONIC ACID IVPB ONE (11:57)
[2020-12-14 17:28] VITALS: TEMP 98.1
[2020-12-14 17:49] VITALS: BP 107/44; PULSE 55
== END 2020-12-14 14:00 | disposition home or self-care (01) ==
LOC: JONCCHEMO 07:39
PROVIDERS: ATTEND Internal Medicine Hematology & Oncology
PROC: 3E02305 Introduction of Other Antineoplastic into Muscle, Percutaneous Approach (ICD-10-PCS; principal; 2020-12-14)
PROC: 3E033GC Introduction of Other Therapeutic Substance into Peripheral Vein, Percutaneous Approach (ICD-10-PCS; 2020-12-14)
DX: Z51.11 Encounter for antineoplastic chemotherapy (principal); C50.912 Malignant neoplasm of unspecified site of left female breast; Z17.0 Estrogen receptor positive status [ER+]; C77.3 Secondary and unspecified malignant neoplasm of axilla and upper limb lymph nodes; C79.51 Secondary malignant neoplasm of bone; C78.7 Secondary malignant neoplasm of liver and intrahepatic bile duct; C78.89 Secondary malignant neoplasm of other digestive organs; D70.1 Agranulocytosis secondary to cancer chemotherapy
CPT/HCPCS: 36415; 80048; 80076; 82378; 83735; 85025; 96365; 96402; J3489; J9395

== ENCOUNTER 2021-01-11 07:10 | Day surgery (SDC) | payer OTHER ==
[2021-01-11] MEDS ORDERED: FULVESTRANT 250 MG/5 ML SYRINGE IM ONE (10:00)
[2021-01-11] MEDS ORDERED: SODIUM CHLORIDE IVPB ONE (10:15)
[2021-01-11] MEDS ORDERED: ZOLEDRONIC ACID IVPB ONE (10:15)
[2021-01-11 10:40] LABS: BASO % 2.1 % (0-2.0); EOS % 1.1 % (0-4.5); HEMATOCRIT 28.3 % (32.4-45.2); HEMOGLOBIN 9.7 GM/dL (10.7-15.3); MCH 35.4 pg (25.7-33.7); MCHC 34.4 g/dl (32.0-36.0); MEAN CELL VOLUME 103.1 fl (80-96); MEAN PLT VOLUME 7.2 fl (7.5-11.1); MONO % 7.8 % (3.8-10.2); PLATELET COUNT 230 10^3/uL (134-434); RBC 2.74 M/mm3 (3.60-5.2); RDW 16.6 % (11.6-15.6); WHITE BLOOD COUNT 2.9 K/mm3 (4.0-10.0)
[2021-01-11 11:11] LABS: CALCIUM 9.6 mg/dL (8.5-10.1)
[2021-01-11 11:12] LABS: ALBUMIN 3.1 g/dl (3.4-5.0); BLOOD UREA NITROGEN 9.1 mg/dL (7-18)
[2021-01-11 11:14] LABS: BILIRUBIN,DIRECT 0.2 mg/dL (0.0-0.2)
[2021-01-11 11:16] LABS: BILIRUBIN,TOTAL 0.4 mg/dL (0.2-1); TOT PROT 7.2 g/dl (6.4-8.2)
[2021-01-11 12:00] LABS: MAGNESIUM 2.5 mg/dL (1.8-2.4)
[2021-01-11 16:47] VITALS: TEMP 97.9
[2021-01-11 16:48] VITALS: BP 135/61; PULSE 52
== END 2021-01-11 11:15 | disposition home or self-care (01) ==
LOC: JONCCHEMO 07:10
PROVIDERS: ATTEND Internal Medicine Hematology & Oncology
PROC: 3E02305 Introduction of Other Antineoplastic into Muscle, Percutaneous Approach (ICD-10-PCS; principal; 2021-01-11)
PROC: 3E033GC Introduction of Other Therapeutic Substance into Peripheral Vein, Percutaneous Approach (ICD-10-PCS; 2021-01-11)
DX: Z51.11 Encounter for antineoplastic chemotherapy (principal); C50.912 Malignant neoplasm of unspecified site of left female breast; C79.51 Secondary malignant neoplasm of bone; C78.7 Secondary malignant neoplasm of liver and intrahepatic bile duct; C78.89 Secondary malignant neoplasm of other digestive organs; Z17.0 Estrogen receptor positive status [ER+]
CPT/HCPCS: 36415; 80048; 80076; 82378; 83735; 85025; 86300; 96365; 96402; J3489; J9395

== ENCOUNTER 2021-02-08 07:27 | Day surgery (SDC) | payer OTHER ==
[2021-02-08] MEDS ORDERED: FULVESTRANT 250 MG/5 ML SYRINGE IM ONE (10:00)
[2021-02-08 10:18] LABS: EOS % 0.9 % (0-4.5); HEMATOCRIT 28.4 % (32.4-45.2); HEMOGLOBIN 9.7 GM/dL (10.7-15.3); LYMPH % 28.6 % (8-40); MCH 35.8 pg (25.7-33.7); MCHC 34.2 g/dl (32.0-36.0); MEAN CELL VOLUME 104.8 fl (80-96); MEAN PLT VOLUME 7.2 fl (7.5-11.1); MONO % 7.7 % (3.8-10.2); NEUT % 60.8 % (42.8-82.8); PLATELET COUNT 187 10^3/uL (134-434); RBC 2.71 M/mm3 (3.60-5.2); RDW 15.7 % (11.6-15.6); WHITE BLOOD COUNT 3.5 K/mm3 (4.0-10.0)
[2021-02-08] MEDS ORDERED: SODIUM CHLORIDE IVPB ONE (11:00)
[2021-02-08] MEDS ORDERED: ZOLEDRONIC ACID IVPB ONE (11:00)
[2021-02-08 11:58] LABS: BLOOD UREA NITROGEN 12.9 mg/dL (7-18); CALCIUM 8.5 mg/dL (8.5-10.1)
[2021-02-08 11:59] LABS: ALBUMIN 3.2 g/dl (3.4-5.0)
[2021-02-08 12:01] LABS: BILIRUBIN,DIRECT 0.2 mg/dL (0.0-0.2)
[2021-02-08 12:03] LABS: BILIRUBIN,TOTAL 0.7 mg/dL (0.2-1)
[2021-02-08 17:15] VITALS: BP 120/55; PULSE 55; TEMP 97.8
== END 2021-02-08 13:45 | disposition home or self-care (01) ==
LOC: JONCCHEMO 07:27
PROVIDERS: ATTEND Internal Medicine Hematology & Oncology
PROC: 3E02305 Introduction of Other Antineoplastic into Muscle, Percutaneous Approach (ICD-10-PCS; principal; 2021-02-08)
PROC: 3E033GC Introduction of Other Therapeutic Substance into Peripheral Vein, Percutaneous Approach (ICD-10-PCS; 2021-02-08)
DX: Z51.11 Encounter for antineoplastic chemotherapy (principal); C50.912 Malignant neoplasm of unspecified site of left female breast; C79.51 Secondary malignant neoplasm of bone; Z17.0 Estrogen receptor positive status [ER+]
CPT/HCPCS: 36415; 80048; 80076; 83735; 85025; 96365; 96402; J3489; J9395

== ENCOUNTER 2021-03-07 07:38 | Observation (INO) | payer OTHER ==
[2021-03-07 08:23] VITALS: BMI 26.9
[2021-03-07 10:40] LABS: BASO % 1.7 % (0-2.0); HEMATOCRIT 26.1 % (32.4-45.2); HEMOGLOBIN 9.1 GM/dL (10.7-15.3); LYMPH % 31.1 % (8-40); MCH 35.2 pg (25.7-33.7); MCHC 34.9 g/dl (32.0-36.0); MEAN CELL VOLUME 100.9 fl (80-96); MEAN PLT VOLUME 7.4 fl (7.5-11.1); MONO % 7.8 % (3.8-10.2); NEUT % 58.4 % (42.8-82.8); PLATELET COUNT 191 10^3/uL (134-434); RBC 2.59 M/mm3 (3.60-5.2); RDW 14.9 % (11.6-15.6); WHITE BLOOD COUNT 2.9 K/mm3 (4.0-10.0)
[2021-03-07 10:58] LABS: CHLORIDE 104 mmol/L (98-107); SODIUM 140 mmol/L (136-145)
[2021-03-07 11:00] LABS: CALCIUM 9.1 mg/dL (8.5-10.1)
[2021-03-07 11:01] LABS: CO2 29 mmol/L (21-32); GLUCOSE,RANDOM 96 mg/dL (74-106); INR 2.74 (0.83-1.09); PROTHROMBIN TIME (PATIENT) 32.4 SEC (9.7-13.0)
[2021-03-07 11:03] LABS: SGPT/ALT 17 U/L (13-61)
[2021-03-07 11:04] LABS: ACTIVATED PTT 33.9 SECONDS (25.2-36.5); CREATININE 1.3 mg/dL (0.55-1.3); SGOT/AST 16 U/L (15-37)
[2021-03-07 11:05] LABS: BILIRUBIN,TOTAL 0.6 mg/dL (0.2-1); TOT PROT 6.9 g/dl (6.4-8.2)
[2021-03-07 11:06] LABS: ALK PHOS 37 U/L (45-117)
[2021-03-07 11:13] LABS: ANION GAP 7 MMOL/L (8-16)
[2021-03-07] MEDS ORDERED: POTASSIUM CHLORIDE TABS 20 MEQ TABLET.ER (FP) PO ONE ×2 (11:19→11:26)
[2021-03-07] MEDS ORDERED: KCL 10 MEQ IVPB 10 MEQ/100 ML INFUS.BAG IVPB ONE (11:26)
[2021-03-07] MEDS: KCL 10 MEQ IVPB 10 MEQ/100 ML INFUS.BAG IVPB SCH ×3 (11:54→16:13)
[2021-03-07] MEDS ORDERED: KCL 10 MEQ IVPB 20 MEQ/200 ML INFUS.BAG IVPB ONE (14:04)
[2021-03-07] MEDS ORDERED: METOPROLOL TARTRATE 50 MG TABLET (FP) ONE (19:56)
[2021-03-07] MEDS ORDERED: APIXABAN 5 MG TABLET ONE (19:56)
[2021-03-07] MEDS ORDERED: ATORVASTATIN CA 40 MG TABLET (FP) ONE (19:56)
[2021-03-07] MEDS: APIXABAN 5 MG TABLET PO SCH (21:20)
[2021-03-07] MEDS: METOPROLOL TARTRATE 50 MG TABLET (FP) PO SCH (21:20)
[2021-03-07] MEDS ORDERED: ABEMACICLIB 150 MG PO SCH (22:00)
[2021-03-07] MEDS ORDERED: PATIENT'S OWN MEDICATION (NON-FORMULARY) (Metoprolol Tartrate [Lopressor] 100 MG Tablet) PO SCH (22:00)
[2021-03-08 07:32] LABS: BASO % 1.8 % (0-2.0); EOS % 1.1 % (0-4.5); HEMATOCRIT 23.8 % (32.4-45.2); HEMOGLOBIN 8.3 GM/dL (10.7-15.3); LYMPH % 34.4 % (8-40); MCH 35.9 pg (25.7-33.7); MEAN CELL VOLUME 102.5 fl (80-96); MEAN PLT VOLUME 7.2 fl (7.5-11.1); MONO % 6.8 % (3.8-10.2); NEUT % 55.9 % (42.8-82.8); PLATELET COUNT 175 10^3/uL (134-434); RBC 2.32 M/mm3 (3.60-5.2); RDW 14.5 % (11.6-15.6)
[2021-03-08 07:58] LABS: CALCIUM 8.7 mg/dL (8.5-10.1)
[2021-03-08 07:59] LABS: ALBUMIN 2.7 g/dl (3.4-5.0); BLOOD UREA NITROGEN 12.7 mg/dL (7-18); MAGNESIUM 2.1 mg/dL (1.8-2.4)
[2021-03-08 08:02] LABS: CREATININE 1.2 mg/dL (0.55-1.3)
[2021-03-08 08:03] LABS: BILIRUBIN,TOTAL 0.7 mg/dL (0.2-1)
[2021-03-08 08:04] LABS: TOT PROT 6.4 g/dl (6.4-8.2)
[2021-03-08] MEDS ORDERED: APIXABAN 5 MG TABLET ONE (08:35)
[2021-03-08] MEDS ORDERED: METOPROLOL TARTRATE 50 MG TABLET (FP) ONE (08:36)
[2021-03-08] MEDS: METOPROLOL TARTRATE 50 MG TABLET (FP) PO SCH (09:29)
[2021-03-08] MEDS: APIXABAN 5 MG TABLET PO SCH (09:29)
[2021-03-08] MEDS: ENALAPRIL MALEATE 5 MG TABLET PO SCH (09:29)
[2021-03-08] MEDS ORDERED: POTASSIUM CHLORIDE TABS 20 MEQ TABLET.ER (FP) PO SCH (10:15)
[2021-03-08] MEDS ORDERED: POTASSIUM CHLORIDE TABS 20 MEQ TABLET.ER (FP) PO ONE (11:20)
[2021-03-08] MEDS ORDERED: ATORVASTATIN CA 40 MG TABLET (FP) PO SCH (22:00)
[2021-03-09] MEDS: METOPROLOL TARTRATE 50 MG TABLET (FP) PO SCH ×2 (00:21→10:42)
[2021-03-09] MEDS: APIXABAN 5 MG TABLET PO SCH ×2 (00:21→09:43)
[2021-03-09 07:22] LABS: CALCIUM 8.4 mg/dL (8.5-10.1)
[2021-03-09 07:23] LABS: ALBUMIN 2.6 g/dl (3.4-5.0); BLOOD UREA NITROGEN 13.7 mg/dL (7-18); MAGNESIUM 2.1 mg/dL (1.8-2.4)
[2021-03-09 07:26] LABS: CREATININE 1.2 mg/dL (0.55-1.3)
[2021-03-09 07:27] LABS: BILIRUBIN,TOTAL 0.4 mg/dL (0.2-1)
[2021-03-09 07:59] LABS: BASO % 1.4 % (0-2.0); EOS % 0.8 % (0-4.5); HEMATOCRIT 25.8 % (32.4-45.2); HEMOGLOBIN 8.9 GM/dL (10.7-15.3); MCH 35.3 pg (25.7-33.7); MCHC 34.5 g/dl (32.0-36.0); MEAN CELL VOLUME 102.6 fl (80-96); MEAN PLT VOLUME 7.5 fl (7.5-11.1); MONO % 7.3 % (3.8-10.2); NEUT % 56.5 % (42.8-82.8); PLATELET COUNT 166 10^3/uL (134-434); RBC 2.51 M/mm3 (3.60-5.2); RDW 14.7 % (11.6-15.6); WHITE BLOOD COUNT 2.9 K/mm3 (4.0-10.0)
[2021-03-09] MEDS: ENALAPRIL MALEATE 5 MG TABLET PO SCH (10:42)
[2021-03-09] MEDS ORDERED: POTASSIUM CHLORIDE TABS 20 MEQ TABLET.ER (FP) PO ONE (12:00)
[2021-03-09 14:41] VITALS: BP 108/61; PULSE 75; TEMP 98.4
== END 2021-03-09 16:05 | disposition home or self-care (01) ==
LOC: JER 07:38 → UNDOADMOB 11:18 → INTOOBSV 11:18 → JERBED 11:18 → J4W 03-08 17:25
PROVIDERS: ADMIT Internal Medicine; ATTEND Nurse Practitioner Acute Care
DX: E87.6 Hypokalemia (principal); R07.89 Other chest pain; I24.9 Acute ischemic heart disease, unspecified; I10 Essential (primary) hypertension; I48.0 Paroxysmal atrial fibrillation; E78.5 Hyperlipidemia, unspecified; C50.919 Malignant neoplasm of unspecified site of unspecified female breast; Z79.01 Long term (current) use of anticoagulants; Z88.0 Allergy status to penicillin
CPT/HCPCS: 36415; 71045-TC-FY; 80053; 82550; 83735; 84443; 84484; 85025; 85610; 85730; 93005; 93010; 99285-25; C9803; G0378; U0003; U0005

== ENCOUNTER 2021-03-15 07:48 | Day surgery (SDC) | payer OTHER ==
[2021-03-15] MEDS ORDERED: ZOLEDRONIC ACID IVPB ONE (10:00)
[2021-03-15] MEDS ORDERED: FULVESTRANT 250 MG/5 ML SYRINGE IM ONE (10:00)
[2021-03-15] MEDS ORDERED: SODIUM CHLORIDE IVPB ONE (10:00)
[2021-03-15 12:04] LABS: BASO % 1.8 % (0-2.0); EOS % 0.7 % (0-4.5); HEMATOCRIT 28.7 % (32.4-45.2); HEMOGLOBIN 9.7 GM/dL (10.7-15.3); LYMPH % 29.2 % (8-40); MCH 34.8 pg (25.7-33.7); MCHC 33.7 g/dl (32.0-36.0); MEAN CELL VOLUME 103.3 fl (80-96); MEAN PLT VOLUME 7.5 fl (7.5-11.1); MONO % 9.8 % (3.8-10.2); NEUT % 58.5 % (42.8-82.8); PLATELET COUNT 239 10^3/uL (134-434); RBC 2.78 M/mm3 (3.60-5.2); RDW 14.6 % (11.6-15.6); WHITE BLOOD COUNT 3.6 K/mm3 (4.0-10.0)
[2021-03-15 12:49] LABS: CALCIUM 8.8 mg/dL (8.5-10.1)
[2021-03-15 12:50] LABS: BLOOD UREA NITROGEN 11.3 mg/dL (7-18)
[2021-03-15 12:52] LABS: BILIRUBIN,DIRECT 0.1 mg/dL (0.0-0.2); CREATININE 1.1 mg/dL (0.55-1.3)
[2021-03-15 12:54] LABS: BILIRUBIN,TOTAL 0.6 mg/dL (0.2-1); TOT PROT 7.5 g/dl (6.4-8.2)
[2021-03-15 12:56] LABS: ALBUMIN 3.3 g/dl (3.4-5.0)
[2021-03-15 16:21] VITALS: TEMP 98.2
[2021-03-15 16:25] VITALS: BP 131/72; PULSE 69
== END 2021-03-15 14:15 | disposition home or self-care (01) ==
LOC: JONCCHEMO 07:48
PROVIDERS: ATTEND Internal Medicine Hematology & Oncology
PROC: 3E02305 Introduction of Other Antineoplastic into Muscle, Percutaneous Approach (ICD-10-PCS; principal; 2021-03-15)
PROC: 3E033GC Introduction of Other Therapeutic Substance into Peripheral Vein, Percutaneous Approach (ICD-10-PCS; 2021-03-15)
DX: Z51.11 Encounter for antineoplastic chemotherapy (principal); C50.919 Malignant neoplasm of unspecified site of unspecified female breast
CPT/HCPCS: 36415; 80048; 80076; 82306; 82378; 83735; 85025; 86300; 96365; 96402; J3489; J9395

== ENCOUNTER 2021-04-12 08:00 | Day surgery (SDC) | payer OTHER ==
[2021-04-12] MEDS ORDERED: ZOLEDRONIC ACID IVPB ONE (10:00)
[2021-04-12] MEDS ORDERED: FULVESTRANT 250 MG/5 ML SYRINGE IM ONE (10:00)
[2021-04-12] MEDS ORDERED: SODIUM CHLORIDE IVPB ONE (10:00)
[2021-04-12 11:57] LABS: BASO % 1.9 % (0-2.0); EOS % 0.9 % (0-4.5); LYMPH % 26.3 % (8-40); MCH 35.1 pg (25.7-33.7); MCHC 33.4 g/dl (32.0-36.0); MEAN CELL VOLUME 105.1 fl (80-96); MEAN PLT VOLUME 6.9 fl (7.5-11.1); MONO % 13.9 % (3.8-10.2); PLATELET COUNT 230 10^3/uL (134-434); RBC 2.57 M/mm3 (3.60-5.2); RDW 15.1 % (11.6-15.6); WHITE BLOOD COUNT 3.8 K/mm3 (4.0-10.0)
[2021-04-12 12:29] LABS: CALCIUM 8.6 mg/dL (8.5-10.1)
[2021-04-12 12:30] LABS: ALBUMIN 3.4 g/dl (3.4-5.0); BLOOD UREA NITROGEN 20.4 mg/dL (7-18); MAGNESIUM 2.4 mg/dL (1.8-2.4)
[2021-04-12 12:33] LABS: BILIRUBIN,DIRECT 0.1 mg/dL (0.0-0.2); CREATININE 1.1 mg/dL (0.55-1.3)
[2021-04-12 12:35] LABS: BILIRUBIN,TOTAL 0.5 mg/dL (0.2-1); TOT PROT 7.3 g/dl (6.4-8.2)
[2021-04-12 12:44] LABS: ANISOCYTOSIS 1+; MACROCYTOSIS 1+; PLATELET ESTIMATE NORMAL
[2021-04-12 17:59] VITALS: TEMP 98.4
[2021-04-12 18:18] VITALS: BP 121/53; PULSE 58
== END 2021-04-12 14:45 | disposition home or self-care (01) ==
LOC: JONCCHEMO 08:00
PROVIDERS: ATTEND Internal Medicine Hematology & Oncology
PROC: 3E02305 Introduction of Other Antineoplastic into Muscle, Percutaneous Approach (ICD-10-PCS; principal; 2021-04-12)
PROC: 3E033GC Introduction of Other Therapeutic Substance into Peripheral Vein, Percutaneous Approach (ICD-10-PCS; 2021-04-12)
DX: Z51.11 Encounter for antineoplastic chemotherapy (principal); C50.919 Malignant neoplasm of unspecified site of unspecified female breast
CPT/HCPCS: 36415; 80048; 80076; 82378; 83735; 85025; 86300; 96365; 96402; J3489; J9395

== ENCOUNTER 2021-05-10 06:37 | Day surgery (SDC) | payer OTHER ==
[2021-05-10] MEDS ORDERED: FULVESTRANT 250 MG/5 ML SYRINGE IM ONE (10:00)
[2021-05-10 11:56] LABS: BASO % 0.9 % (0-2.0); EOS % 3.5 % (0-4.5); HEMATOCRIT 33.2 % (32.4-45.2); HEMOGLOBIN 10.8 GM/dL (10.7-15.3); LYMPH % 18.8 % (8-40); MCH 31.9 pg (25.7-33.7); MCHC 32.5 g/dl (32.0-36.0); MEAN CELL VOLUME 98.3 fl (80-96); MEAN PLT VOLUME 7.4 fl (7.5-11.1); MONO % 12.4 % (3.8-10.2); NEUT % 64.4 % (42.8-82.8); PLATELET COUNT 275 10^3/uL (134-434); RBC 3.38 M/mm3 (3.60-5.2); RDW 15.9 % (11.6-15.6); WHITE BLOOD COUNT 5.9 K/mm3 (4.0-10.0)
[2021-05-10 12:10] LABS: CALCIUM 8.9 mg/dL (8.5-10.1)
[2021-05-10 12:11] LABS: ALBUMIN 3.9 g/dl (3.4-5.0); BLOOD UREA NITROGEN 20.1 mg/dL (7-18); MAGNESIUM 2.7 mg/dL (1.8-2.4)
[2021-05-10 12:14] LABS: BILIRUBIN,DIRECT 0.1 mg/dL (0.0-0.2); CREATININE 1.1 mg/dL (0.55-1.3)
[2021-05-10 12:15] LABS: BILIRUBIN,TOTAL 0.6 mg/dL (0.2-1)
[2021-05-10 12:16] LABS: IRON SERUM 54 ug/dL (50-175); TOT PROT 7.9 g/dl (6.4-8.2); TOTAL IRON BINDING CAPACITY 309 ug/dL (250-450)
[2021-05-10 16:39] VITALS: BP 125/48; PULSE 55; TEMP 98
== END 2021-05-10 11:45 | disposition home or self-care (01) ==
LOC: JONCCHEMO 06:37
PROVIDERS: ATTEND Internal Medicine Hematology & Oncology
DX: Z51.11 Encounter for antineoplastic chemotherapy (principal); C50.911 Malignant neoplasm of unspecified site of right female breast; Z17.0 Estrogen receptor positive status [ER+]
CPT/HCPCS: 36415; 80048; 80076; 82378; 82728; 83540; 83550; 83735; 85025; 86300; 96401; J9395

== ENCOUNTER 2021-06-07 07:22 | Day surgery (SDC) | payer OTHER ==
[2021-06-07] MEDS ORDERED: FULVESTRANT 250 MG/5 ML SYRINGE IM ONE (10:00)
[2021-06-07 10:54] VITALS: TEMP 98.3
[2021-06-07 11:03] LABS: BASO % 0.7 % (0-2.0); EOS % 2.8 % (0-4.5); HEMATOCRIT 35.4 % (32.4-45.2); HEMOGLOBIN 11.7 GM/dL (10.7-15.3); LYMPH % 21.3 % (8-40); MCH 30.2 pg (25.7-33.7); MCHC 33.1 g/dl (32.0-36.0); MEAN CELL VOLUME 91.3 fl (80-96); MEAN PLT VOLUME 7.2 fl (7.5-11.1); MONO % 10.2 % (3.8-10.2); PLATELET COUNT 244 10^3/uL (134-434); RBC 3.88 M/mm3 (3.60-5.2); RDW 16.3 % (11.6-15.6); WHITE BLOOD COUNT 5.2 K/mm3 (4.0-10.0)
[2021-06-07 11:37] LABS: BLOOD UREA NITROGEN 18.5 mg/dL (7-18); CALCIUM 8.8 mg/dL (8.5-10.1)
[2021-06-07 11:38] LABS: ALBUMIN 3.5 g/dl (3.4-5.0); MAGNESIUM 2.2 mg/dL (1.8-2.4)
[2021-06-07 11:40] LABS: BILIRUBIN,DIRECT 0.1 mg/dL (0.0-0.2); CREATININE 0.9 mg/dL (0.55-1.3)
[2021-06-07 11:42] LABS: BILIRUBIN,TOTAL 0.5 mg/dL (0.2-1); TOT PROT 7.3 g/dl (6.4-8.2)
[2021-06-07 15:55] VITALS: BP 120/66; PULSE 58
== END 2021-06-07 12:20 | disposition home or self-care (01) ==
LOC: JONCCHEMO 07:22
PROVIDERS: ATTEND Internal Medicine Hematology & Oncology
DX: Z51.11 Encounter for antineoplastic chemotherapy (principal); C50.911 Malignant neoplasm of unspecified site of right female breast; Z17.0 Estrogen receptor positive status [ER+]
CPT/HCPCS: 36415; 80048; 80076; 82378; 83735; 85025; 86300; 96402; J9395

== ENCOUNTER 2021-07-05 06:30 | Day surgery (SDC) | payer OTHER ==
[2021-07-05] MEDS ORDERED: SODIUM CHLORIDE IVPB ONE (10:00)
[2021-07-05] MEDS ORDERED: ZOLEDRONIC ACID IVPB ONE (10:00)
[2021-07-05] MEDS ORDERED: FULVESTRANT 250 MG/5 ML SYRINGE IM ONE (10:00)
[2021-07-05 11:39] LABS: BASO % 0.9 % (0-2.0); EOS % 2.1 % (0-4.5); HEMATOCRIT 37.3 % (32.4-45.2); HEMOGLOBIN 12.2 GM/dL (10.7-15.3); MCH 28.6 pg (25.7-33.7); MCHC 32.9 g/dl (32.0-36.0); MEAN CELL VOLUME 86.9 fl (80-96); MEAN PLT VOLUME 7.4 fl (7.5-11.1); MONO % 10.9 % (3.8-10.2); NEUT % 67.1 % (42.8-82.8); PLATELET COUNT 261 10^3/uL (134-434); RBC 4.29 M/mm3 (3.60-5.2); WHITE BLOOD COUNT 5.7 K/mm3 (4.0-10.0)
[2021-07-05 12:08] LABS: ALBUMIN 3.8 g/dl (3.4-5.0); CALCIUM 9.2 mg/dL (8.5-10.1); MAGNESIUM 2.3 mg/dL (1.8-2.4)
[2021-07-05 12:09] LABS: BLOOD UREA NITROGEN 21.9 mg/dL (7-18)
[2021-07-05 12:11] LABS: BILIRUBIN,DIRECT 0.2 mg/dL (0.0-0.2)
[2021-07-05 12:12] LABS: CREATININE 0.8 mg/dL (0.55-1.3)
[2021-07-05 12:13] LABS: BILIRUBIN,TOTAL 0.4 mg/dL (0.2-1); TOT PROT 7.8 g/dl (6.4-8.2)
[2021-07-05 17:13] VITALS: BP 130/70; PULSE 50; TEMP 98.3
== END 2021-07-05 14:15 | disposition home or self-care (01) ==
LOC: JONCCHEMO 06:30
PROVIDERS: ATTEND Internal Medicine Hematology & Oncology
PROC: 3E02305 Introduction of Other Antineoplastic into Muscle, Percutaneous Approach (ICD-10-PCS; principal; 2021-07-05)
PROC: 3E033GC Introduction of Other Therapeutic Substance into Peripheral Vein, Percutaneous Approach (ICD-10-PCS; 2021-07-05)
DX: Z51.11 Encounter for antineoplastic chemotherapy (principal); C50.911 Malignant neoplasm of unspecified site of right female breast; Z17.0 Estrogen receptor positive status [ER+]
CPT/HCPCS: 36415; 80048; 80076; 82378; 83735; 85025; 86300; 96365; 96402; J3489; J9395

== ENCOUNTER 2021-07-23 20:58 | Emergency (ER) | payer OTHER ==
[2021-07-23 21:14] VITALS: TEMP 98.1; BMI 29.0
[2021-07-24 01:59] VITALS: BP 107/51; PULSE 55
== END 2021-07-24 02:14 | disposition home or self-care (01) ==
LOC: JER 20:58
DX: T44.7X1A Poisoning by beta-adrenoreceptor antagonists, accidental (unintentional), initial encounter (principal)
CPT/HCPCS: 93005; 93010; 99283-25

== ENCOUNTER 2021-08-02 06:24 | Day surgery (SDC) | payer OTHER ==
[2021-08-02] MEDS ORDERED: FULVESTRANT 250 MG/5 ML SYRINGE IM ONE (10:00)
[2021-08-02 11:48] VITALS: BP 127/45; PULSE 52; TEMP 98.6
[2021-08-02 11:57] LABS: BASO % 0.7 % (0-2.0); HEMATOCRIT 38.7 % (32.4-45.2); HEMOGLOBIN 12.7 GM/dL (10.7-15.3); LYMPH % 21.2 % (8-40); MCH 27.8 pg (25.7-33.7); MCHC 32.9 g/dl (32.0-36.0); MEAN CELL VOLUME 84.4 fl (80-96); MEAN PLT VOLUME 7.4 fl (7.5-11.1); MONO % 11.9 % (3.8-10.2); NEUT % 64.2 % (42.8-82.8); PLATELET COUNT 245 10^3/uL (134-434); RBC 4.58 M/mm3 (3.60-5.2); RDW 16.5 % (11.6-15.6); WHITE BLOOD COUNT 5.5 K/mm3 (4.0-10.0)
[2021-08-02 12:22] LABS: CALCIUM 9.4 mg/dL (8.5-10.1)
[2021-08-02 12:23] LABS: BLOOD UREA NITROGEN 25.6 mg/dL (7-18); MAGNESIUM 2.6 mg/dL (1.8-2.4)
[2021-08-02 12:26] LABS: CREATININE 0.8 mg/dL (0.55-1.3)
[2021-08-02 12:27] LABS: BILIRUBIN,DIRECT 0.1 mg/dL (0.0-0.2)
[2021-08-02 12:29] LABS: BILIRUBIN,TOTAL 0.4 mg/dL (0.2-1)
== END 2021-08-02 12:30 | disposition home or self-care (01) ==
LOC: JONCCHEMO 06:24
PROVIDERS: ATTEND Internal Medicine Hematology & Oncology
DX: Z51.11 Encounter for antineoplastic chemotherapy (principal); C50.911 Malignant neoplasm of unspecified site of right female breast; Z17.0 Estrogen receptor positive status [ER+]
CPT/HCPCS: 36415; 80048; 80076; 82378; 83735; 85025; 86300; 96402; J9395

== ENCOUNTER 2021-09-06 07:45 | Day surgery (SDC) | payer OTHER ==
[2021-09-06] MEDS ORDERED: FULVESTRANT 250 MG/5 ML SYRINGE IM ONE (10:00)
[2021-09-06 11:38] LABS: BASO % 0.6 % (0-2.0); EOS % 1.9 % (0-4.5); HEMATOCRIT 37.6 % (32.4-45.2); HEMOGLOBIN 12.4 GM/dL (10.7-15.3); LYMPH % 19.4 % (8-40); MCH 27.4 pg (25.7-33.7); MEAN CELL VOLUME 83.1 fl (80-96); MEAN PLT VOLUME 7.6 fl (7.5-11.1); MONO % 10.8 % (3.8-10.2); NEUT % 67.3 % (42.8-82.8); PLATELET COUNT 242 10^3/uL (134-434); RBC 4.52 M/mm3 (3.60-5.2); RDW 16.9 % (11.6-15.6); WHITE BLOOD COUNT 5.8 K/mm3 (4.0-10.0)
[2021-09-06 11:46] LABS: BLOOD UREA NITROGEN 23.6 mg/dL (7-18); CALCIUM 8.9 mg/dL (8.5-10.1)
[2021-09-06 11:47] LABS: ALBUMIN 3.7 g/dl (3.4-5.0); MAGNESIUM 2.5 mg/dL (1.8-2.4)
[2021-09-06 11:49] LABS: BILIRUBIN,DIRECT 0.1 mg/dL (0.0-0.2)
[2021-09-06 11:50] LABS: CREATININE 0.8 mg/dL (0.55-1.3)
[2021-09-06 11:51] LABS: BILIRUBIN,TOTAL 0.6 mg/dL (0.2-1); TOT PROT 7.4 g/dl (6.4-8.2)
[2021-09-06 16:50] VITALS: BP 155/62; PULSE 55; TEMP 99
== END 2021-09-06 15:30 | disposition home or self-care (01) ==
LOC: JONCCHEMO 07:45
PROVIDERS: ATTEND Internal Medicine Hematology & Oncology
DX: Z51.11 Encounter for antineoplastic chemotherapy (principal); C50.911 Malignant neoplasm of unspecified site of right female breast; Z17.0 Estrogen receptor positive status [ER+]
CPT/HCPCS: 36415; 80048; 80076; 82378; 83735; 85025; 86300; 96402; J9395

== ENCOUNTER 2021-10-04 07:57 | Day surgery (SDC) | payer OTHER ==
[2021-10-04] MEDS ORDERED: SODIUM CHLORIDE IVPB ONE (10:00)
[2021-10-04] MEDS ORDERED: ZOLEDRONIC ACID IVPB ONE (10:00)
[2021-10-04] MEDS ORDERED: FULVESTRANT 250 MG/5 ML SYRINGE IM ONE (10:00)
[2021-10-04 10:54] LABS: BASO % 0.6 % (0-2.0); EOS % 2.2 % (0-4.5); HEMOGLOBIN 12.4 GM/dL (10.7-15.3); LYMPH % 20.7 % (8-40); MCH 27.2 pg (25.7-33.7); MCHC 32.5 g/dl (32.0-36.0); MEAN CELL VOLUME 83.6 fl (80-96); MEAN PLT VOLUME 7.8 fl (7.5-11.1); MONO % 11.5 % (3.8-10.2); PLATELET COUNT 240 10^3/uL (134-434); RBC 4.54 M/mm3 (3.60-5.2); RDW 17.1 % (11.6-15.6); WHITE BLOOD COUNT 5.7 K/mm3 (4.0-10.0)
[2021-10-04 11:40] LABS: CALCIUM 9.2 mg/dL (8.5-10.1)
[2021-10-04 11:41] LABS: ALBUMIN 3.6 g/dl (3.4-5.0)
[2021-10-04 11:43] LABS: BLOOD UREA NITROGEN 23.7 mg/dL (7-18); MAGNESIUM 2.5 mg/dL (1.8-2.4)
[2021-10-04 11:44] LABS: CREATININE 0.8 mg/dL (0.55-1.3)
[2021-10-04 11:45] LABS: BILIRUBIN,TOTAL 0.6 mg/dL (0.2-1)
[2021-10-04 11:46] LABS: BILIRUBIN,DIRECT 0.1 mg/dL (0.0-0.2); TOT PROT 7.2 g/dl (6.4-8.2)
[2021-10-04 16:51] VITALS: PULSE 52; TEMP 98.3
[2021-10-04 17:23] VITALS: BP 138/62; RESP 18
== END 2021-10-04 13:15 | disposition home or self-care (01) ==
LOC: JONCCHEMO 07:57
PROVIDERS: ATTEND Internal Medicine Hematology & Oncology
PROC: 3E02305 Introduction of Other Antineoplastic into Muscle, Percutaneous Approach (ICD-10-PCS; principal; 2021-10-04)
PROC: 3E033GC Introduction of Other Therapeutic Substance into Peripheral Vein, Percutaneous Approach (ICD-10-PCS; 2021-10-04)
DX: Z51.11 Encounter for antineoplastic chemotherapy (principal); C50.911 Malignant neoplasm of unspecified site of right female breast; Z17.0 Estrogen receptor positive status [ER+]
CPT/HCPCS: 36415; 80048; 80076; 82378; 83735; 85025; 86300; 96365; 96402; J3489; J9395